=== PATIENT | male | born 1950 | race Caucasian/White ===

== ENCOUNTER 2019-02-10 10:20 | Emergency (ER) | payer MEDICARE ==
[~2019-02-10] VITALS: Ht 170.2 cm; Wt 93.0 kg
[~2019-02-10 10:20] MED LIST: ALBU8HFA2 INH; AZIT250 PO; CODGUAEL PO
[2019-02-10 11:16] LABS: BASOPHILS ABSOLUTE AUTO 0.04 K/mm3 (0.00-0.23); BASOPHILS PERCENT AUTO 1 % (0-2); EOSINOPHILS ABSOLUTE AUTO 0.27 K/mm3 (0.00-0.68); EOSINOPHILS PERCENT AUTO 4 % (0-6); Hematocrit 35.3 % (37.0-53.0); Hemoglobin 11.2 g/dL (13.5-17.5); IMMATURE GRAN ABSOLUTE AUTO 0.01 K/mm3 (0.00-0.10); IMMATURE GRAN PERCENT AUTO 0 % (0-1); LYMPHOCYTES ABSOLUTE AUTO 0.96 K/mm3 (0.84-5.20); LYMPHOCYTES PERCENT AUTO 15 % (21-46); MONOCYTES ABSOLUTE AUTO 0.65 K/mm3 (0.16-1.47); MONOCYTES PERCENT AUTO 10 % (4-13); Mean Corpuscular HGB 31.9 pg (26.0-34.0); Mean Corpuscular HGB Conc 31.7 g/dL (31.5-36.5); Mean Corpuscular Volume 101 fL (80-100); Mean Platelet Volume 10.2 fL (9.1-12.4); NEUTROPHILS ABSOLUTE AUTO 4.48 K/mm3 (1.96-9.15); NEUTROPHILS PERCENT AUTO 70 % (41-73); Platelet Count 163 K/mm3 (150-400); RDW Coefficient Variation 18.6 % (11.7-14.2); RDW Standard Deviation 69.2 fL (35.1-46.3); Red Blood Cell Count 3.51 M/mm3 (4.30-5.90); White Blood Cell Count 6.41 K/mm3 (4.00-11.30)
[2019-02-10 11:35] LABS: Alanine Aminotransfer (ALT/SGP 21 U/L (12-78); Albumin, Blood 2.1 g/dL (3.4-5.0); Albumin/Globulin Ratio 0.3 (0.8-1.8); Alk Phos 172 U/L (50-136); Anion Gap 5 mmol/L (6-16); Aspartate Aminotrans (AST/SGOT 49 U/L (12-37); Bilirubin, Total 2.3 mg/dL (0.1-1.0); Blood Urea Nitrogen 12 mg/dL (8-24); Bun/Creatinine Ratio 11.8 (12.0-20.0); CO2, Blood 32 mmol/L (21-32); Calcium, Blood 8.4 mg/dL (8.5-10.1); Chloride, Blood 98 mmol/L (98-108); Creatinine, Blood 1.02 mg/dL (0.60-1.20); Globulin, Blood 6.1 g/dL (2.2-4.0); Glomerular Filtration Rate >60 (60-); Glucose, Blood 98 mg/dL (70-99); Potassium, Blood 3.6 mmol/L (3.5-5.5); Sodium, Blood 135 mmol/L (136-145); Total Protein, Blood 8.2 g/dL (6.4-8.2); Troponin I <0.015 ng/mL (0.000-0.040)
[2019-02-10] MEDS ORDERED: OXYC5 PO (12:28)
[2019-02-10] MEDS ORDERED: POTA10T PO (12:29)
[2019-02-10] MEDS ORDERED: GABA300 PO (12:29)
[2019-02-10] MEDS ORDERED: FURO40 PO (12:29)
[2019-02-10] MEDS ORDERED: SPIR25 PO (12:29)
[2019-02-10] MEDS ORDERED: PANT40 PO (12:29)
[2019-02-10] MEDS ORDERED: Cymbalta20 MG PO (12:29)
[2019-02-10] MEDS ORDERED: ELIQUIS5 MG PO (12:30)
[2019-02-10] MEDS ORDERED: Roxicodone15 MG PO (12:30)
[2019-02-10] MEDS ORDERED: LACT10SY PO (12:30)
--- NOTE | 2019-02-10 13:51 | NUR ---
Initial Visit: ED Palliative Care Consult for Goals of Care. Received call from bedside nurse Patrica and discussed case. Spoke with Dr Steele and discussed case. Pt is resting on gurney and reports 7/10 pain. He reports the dilaudid he received is helping with the pain. Pt's brother Aldair and sister in law are at bedside. Listened as Pt reports coming up from [place] after receiving news of cancer and having surgery. Pt reports he currently is staying in a [place] out [place]. His plan is for hospice and the right to . He reports needing to be placed where he can receive care. Pt currently has Medicare but does not have Medicaid and is on a limited income. Educated on hospice philosophy and the [facility] is [place] to learn more about the right to . Instructed Pt and family ED Child Daycare Worker will come visit to help with goals of placement. Pt and family are agreeable. Spoke with ED Child Daycare Worker Radha and discussed case. Spoke with Dr Steele and plan is for Pt to discharge. Palliative Care will remain available.
[2019-02-10] MEDS ORDERED: Roxicodone5 MG PO (15:07)
[2019-02-10] MEDS ORDERED: Bactrim Ds Tab1 EACH PO (15:07)
== END 2019-02-10 15:30 | disposition home or self-care (01) ==
LOC: ER 10:20
PROVIDERS: Physician Assistant
DX: L03.115 Cellulitis of right lower limb (principal); L03.116 Cellulitis of left lower limb; L97.929 Non-pressure chronic ulcer of unspecified part of left lower leg with unspecified severity; L97.919 Non-pressure chronic ulcer of unspecified part of right lower leg with unspecified severity; F32.9 Major depressive disorder, single episode, unspecified; Z66 Do not resuscitate; Z85.05 Personal history of malignant neoplasm of liver; Z86.711 Personal history of pulmonary embolism; Z79.899 Other long term (current) drug therapy
CPT/HCPCS: 36415; 71046; 80053; 83880; 84484; 85025; 93005; 93010; 93971; 96365; 96375; 96376; 99284-25; J0690; J1170